=== PATIENT | female | born 1955 | race Caucasian/White ===

== ENCOUNTER 2020-02-13 18:54 | Emergency (ER) | payer BC, MEDICAID ==
[2020-02-13] MEDS ORDERED: Ketorolac 60 MG/2 ML SDV ONE (19:00)
--- NOTE | 2020-02-13 19:06 | EDM.PDOC ---
ED HPI GENERAL MEDICAL PROBLEM - General Chief Complaint: Upper Extremity Injury/Pain Stated Complaint: FINGER INJURY Time Seen by Provider: 02/13/20 18:55 Source of Information: Reports: Patient History Limitations: Reports: No Limitations - History of Present Illness INITIAL COMMENTS - FREE TEXT/NARRATIVE: 64 YO WF PRESENTS TO ER WITH INJURY TO LEFT RING FINGER. PT REPORTS SHE WAS VACCINATING CATTLE AND WAS ACCIDENTALLY STUCK IN THE FINGER BY THE SYRINGE AFTER IT HAD BEEN USED ON A CALF. PT REPORTS PAIN AT INJECTION SITE AND SWELLING WHICH HAS CAUSED HER TO BE UNABLE TO REMOVE HER [place] RINGS ON THIS FINGER. PT DENIES FEVER/CHILLS, PT ABLE TO MOVE FINGERS AND WRIST WITH MINIMAL PAIN BUT STATES THE RING FINGER IS VERY PAINFUL TO TOUCH AND MOVEMENT. Onset: Today Duration: Hour(s): (6) Quality: Reports: Ache Severity: Moderate Improves with: Reports: None Worsens with: Reports: None Associated Symptoms: Reports: No Other Symptoms. Denies: Fever/Chills - Related Data Home Meds: Home Meds Amoxicillin/Clavulanate K [Augmentin 875-125 MG] 1 tab PO BID #20 tablet 02/13/20 [Rx] traMADol [Ultram] 50 mg PO Q6H PRN #10 tab 02/13/20 [Rx] Review of Systems - Review of Systems Review Of Systems: See Below Constitutional: Reports: No Symptoms Eyes: Reports: No Symptoms Ears: Reports: No Symptoms Nose: Reports: No Symptoms Mouth/Throat: Reports: No Symptoms Respiratory: Reports: No Symptoms Cardiovascular: Reports: No Symptoms GI/Abdominal: Reports: No Symptoms Genitourinary: Reports: No Symptoms Musculoskeletal: Reports: Hand Pain (LEFT RING FINGER SWELLING) Neurological: Reports: No Symptoms ED EXAM, GENERAL - Physical Exam Exam: See Below Exam Limited By: No Limitations General Appearance: Alert, WD/WN, No Apparent Distress Respiratory/Chest: No Respiratory Distress, Lungs Clear, Normal Breath Sounds, No Accessory Muscle Use, Chest Non-Tender Cardiovascular: Normal Peripheral Pulses, Regular Rate, Rhythm, No Edema, No Gallop, No JVD, No Murmur, No Rub GI/Abdominal: Normal Bowel Sounds, Soft, Non-Tender, No Organomegaly, No Distention, No Abnormal Bruit, No Mass Back Exam: Normal Inspection, Full Range of Motion, NT Extremities: Normal Range of Motion, No Pedal Edema, Normal Capillary Refill Neurological: Alert, Oriented, CN II-XII Intact, Normal Cognition, Normal Gait, Normal Reflexes, No Motor/Sensory Deficits Psychiatric: Normal Affect, Normal Mood Skin Exam: Other (MILD SWELLING TO LEFT RING FINGER WITH MILD ERYTHEMA) ED TRAUMA EXTREMITY PROCEDURES - Laceration/Wound Repair Left Digit - 4th (Ring) Progress/Comments: PT HAS A PUNCTURE WOUND TO LEFT RING FINGER- DOCUMENTATION IS FOR RING REMOVAL FROM LEFT RING FINGER MANUAL RING CUTTER USED TO REMOVE RING X 2 OFF LEFT INDEX FINGER. PT TOLERATED PROCEDURE WELL. Departure - Departure Time of Disposition: 19:36 Disposition: Home, Self-Care 01 Condition: Fair Clinical Impression: Puncture wound of left ring finger - Discharge Information Prescriptions: Amoxicillin/Clavulanate K [Augmentin 875-125 MG] 1 tab PO BID #20 tablet traMADol [Ultram] 50 mg PO Q6H PRN #10 tab PRN Reason: Pain Instructions: Puncture Wound Forms: ED Department Discharge Additional Instructions: 1. DISCHARGE HOME 2. AUGMENTIN 875MG TWICE A DAY X 10 DAYS 3. FOLLOW UP WITH PCP IN 2 DAYS FOR RECHECK 4. RETURN TO ER FOR WORSENING SYMPTOMS 5. ULTRAM 50MG #10 1-2 EVERY 6 HOURS NEEDED FOR PAIN 6. MOTRIN 600MG EVERY 6 HOURS NEEDED FOR PAIN - Assessment/Plan Assessment:: 1. PUNCTURE WOUND TO LEFT INDEX FINGER 2. RING REMOVAL DUE TO LEFT INDEX FINGER SWELLING Plan: 1. DISCHARGE HOME 2. AUGMENTIN 875MG TWICE A DAY X 10 DAYS 3. FOLLOW UP WITH PCP IN 2 DAYS FOR RECHECK 4. RETURN TO ER FOR WORSENING SYMPTOMS 5. ULTRAM 50MG #10 1-2 EVERY 6 HOURS NEEDED FOR PAIN 6. MOTRIN 600MG EVERY 6 HOURS NEEDED FOR PAIN
[2020-02-13] MEDS ORDERED: Amoxicillin/Clavulanate K 875-125 MG Tab PO ONE (19:14)
[2020-02-13] MEDS ORDERED: Diphtheria,Pertussis(Acell),Tetanus Vaccine 0.5 ML SDV IM ONE (19:14)
[2020-02-13] MEDS ORDERED: Ketorolac 60 MG/2 ML SDV IM ONE (19:23)
--- NOTE | 2020-02-13 19:55 | CR ---
[id number] RAD/RAD Hand Left 3V Exam: RAD Hand Left 3V Indication:LT 4TH DIGIT STABBED WITH NEEDLE AFTER COW VACCINATION Comparison: No prior imaging for comparison. Discussion: No fracture or dislocation. Soft tissue swelling in the 4th digit centered on the PIP articulation. Punctate radiopaque foreign bodies projecting over the hand are likely on the surface of the skin. Impression: No acute findings. Charlie York MD 02/13/201953 Thank you for allowing us to participate in the care of your patient.
== END 2020-02-13 19:52 | disposition home or self-care (01) ==
LOC: KA.ED 18:54
DX: S61.235A Puncture wound without foreign body of left ring finger without damage to nail, initial encounter (principal); Z23 Encounter for immunization; W46.0XXA Contact with hypodermic needle, initial encounter
CPT/HCPCS: 73130-LT; 90471; 90715; 96372; 99283; 99283-25; A9270-GY; J1885